=== PATIENT | male | born 1980 | race Caucasian/White ===

== ENCOUNTER 2017-02-23 09:15 | Emergency (ER) | payer MEDICAID ==
[~2017-02-23] VITALS: Ht 182.9 cm; Wt 104.5 kg
[2017-02-23 09:19] VITALS: Ht 182.9 cm; Wt 104.5 kg
[2017-02-23] MEDS ORDERED: IBUP400T22 PO (09:46)
--- NOTE | 2017-02-23 10:18 | ERA ---
ER Documentation Chief Complaint Date/Time DATE: 02/23/17 TIME: 10:15 Chief Complaint states hx of anxiety wants meds and ankle pain HPI 36-year-old male presenting when he refill of Ativan. Patient was in the ER 1 month ago for panic attacks and was given Ativan. Patient has not had panic attacks lately but once a prescription in case he has some in the future. Patient has no thoughts of suicide hurting oneself or others. Patient was also diagnosed with a left ankle sprain 1 month ago. Patient has mild pain on walking. There is no change in ambulation or numbness or tingling loss of sensation. ROS All systems reviewed and are negative except as per history of present illness. Medications Home Meds Active Scripts Ibuprofen* (Motrin*) 400 Mg Tab, 400 MG PO Q6, #30 TAB Prov:BRENDAN ANNA PA-C 02/23/17 PMhx/Soc Medical and Surgical Hx: pt denies Medical Hx, pt denies Surgical Hx Hx Alcohol Use: Yes Hx Substance Use: No Hx Tobacco Use: No Smoking Status: Never smoker Physical Exam Vitals Vital Signs Date Time Temp Pulse Resp B/P Pulse Ox O2 Delivery O2 Flow Rate FiO2 02/23/17 09:19 97.5 68 18 138/86 97 Physical Exam Const: Overweight 36-year-old male in no acute distress sitting on exam table Head: Atraumatic Eyes: Normal Conjunctiva ENT: Normal External Ears, Nose and Mouth. Neck: Full range of motion..~ No meningismus. Resp: Clear to auscultation bilaterally Cardio: Regular rate and rhythm, no murmurs Abd: Soft, non tender, non distended. Normal bowel sounds Skin: No petechiae or rashes Back: No midline or flank tenderness Ext: No cyanosis, or edema. No pain to palpation of ankles bilaterally. Neur: Awake and alert. Neurovascularly intact. Patellar reflexes 2+ bilaterally. Psych: Normal Mood and Affect Procedures/MDM Patient is requesting refill for Ativan. I have advised patient to follow-up with a primary care provider. He does not have a primary care provider or insurance so will be given him clinics on discharge. Patient is anxious right now and I have little suspicion for him hurting himself or others. He has verbally agreed to the assessment and plan. Patient has also complained of ankle sprain 1 month. Will discharge with ibuprofen for discomfort. Patient is able to ambulate and has no tenderness palpation a very low suspicion for break. X-ray was taken 1 month ago showed no acute fractures as the patient brought the documents with him. Patient will be discharged at this time with discharge instructions and return precautions. Departure Diagnosis: Primary Impression: Ankle sprain Qualified Code: S93.402D - Sprain of left ankle, unspecified ligament, subsequent encounter Additional Impression: Anxiety Condition: Stable Patient Instructions: Your Body's Response to Anxiety Referrals: [facility] YOU HAVE RECEIVED A MEDICAL SCREENING EXAM AND THE RESULTS INDICATE THAT YOU DO NOT HAVE A CONDITION THAT REQUIRES URGENT TREATMENT IN THE EMERGENCY DEPARTMENT. FURTHER EVALUATION AND TREATMENT OF YOUR CONDITION CAN WAIT UNTIL YOU ARE SEEN IN YOUR DOCTORS OFFICE WITHIN THE NEXT 1-2 DAYS. IT IS YOUR RESPONSIBILITY TO MAKE AN APPOINTMENT FOR FOLOW-UP CARE. IF YOU HAVE A PRIMARY DOCTOR --you should call your primary doctor and schedule an appointment IF YOU DO NOT HAVE A PRIMARY DOCTOR YOU CAN CALL OUR PHYSICIAN REFERRAL HOTLINE AT IF YOU CAN NOT AFFORD TO SEE A PHYSICIAN YOU CAN CHOSE FROM THE FOLLOWING [facility] [address] [facility] [address] [facility] [facility] [address] [facility] [facility] [address] [facility]. [facility] [address] [facility]. [facility]. [address] [place] Additional Instructions: Follow up with your PCP within the next 1-3 days for a more thorough evaluation and a possible referral to a specialist. Return the the emergency department immediately if symptoms worsen or change. If you have any questions regarding medications, ask your pharmacist or us before you leave. If any adverse reactions occur while taking your medications, discontinue the treatment and return to the emergency department immediately. Take your medications as directed, and complete the entire course of treatment. BRENDAN ANNA PA-C February 23, 2017 10:18
== END 2017-02-23 10:31 | disposition home or self-care (01) ==
LOC: FTE 09:15
DX: S93.402D Sprain of unspecified ligament of left ankle, subsequent encounter (principal); X58.XXXD Exposure to other specified factors, subsequent encounter
CPT/HCPCS: 99283

== ENCOUNTER 2017-06-12 16:00 | Emergency (ER) | payer MEDICAID, OTHER ==
[~2017-06-12] VITALS: Ht 182.9 cm; Wt 103.5 kg
[~2017-06-12 16:00] MED LIST: IBUP400T22 PO
[2017-06-12 16:09] VITALS: Ht 182.9 cm; Wt 103.5 kg
[2017-06-12] MEDS ORDERED: ONDANSETRON (ODT) 4 MG TAB ODT STA (17:19)
--- NOTE | 2017-06-12 17:48 | RADRPT ---
PROCEDURE: XR Chest. CLINICAL INDICATION: chest pain, shortness of breath TECHNIQUE: Single frontal view of the chest was obtained COMPARISON: None FINDINGS: The heart and mediastinum are within normal limits. The lungs are clear. There is no pleural effusion or pneumothorax. RPTAT: AA IMPRESSION: No acute disease. .Eliazar Blakely MD, MD Date Time Electronically viewed and signed by .Eliazar Blakely MD, on 06/12/2017 17:48 .S/
[2017-06-12 18:14] LABS: BASOPHIL # 0.1 10^3/ul (0.0-0.1); BASOPHILS % 0.5 % (0.0-2.0); EOSINOPHILS # 0.5 10^3/ul (0.0-0.5); EOSINOPHILS % 4.6 % (0.0-7.0); HEMATOCRIT 42.9 % (42.0-52.0); HEMOGLOBIN 15.2 g/dl (14.0-18.0); LYMPHOCYTES # 2.2 10^3/ul (0.8-2.9); LYMPHOCYTES % 20.2 % (15.0-51.0); MEAN CORPUSCULAR HEMOGLOBIN 32.1 pg (29.0-33.0); MEAN CORPUSCULAR HGB CONC 35.4 g/dl (32.0-37.0); MEAN CORPUSCULAR VOLUME 90.7 fl (82.0-101.0); MEAN PLATELET VOLUME 10.3 fl (7.4-10.4); MONOCYTE # 1.1 10^3/ul (0.3-0.9); MONOCYTES % 9.7 % (0.0-11.0); NEUTROPHILS % 64.7 % (39.0-77.0); PLATELET COUNT 259 10^3/UL (140-415); RED BLOOD COUNT 4.73 10^6/ul (4.70-6.10); RED CELL DISTRIBUTION WIDTH 12.3 % (11.5-14.5)
[2017-06-12 19:00] LABS: ALBUMIN 4.5 g/dl (3.3-4.9); ALBUMIN/GLOBULIN RATIO 1.32; BILIRUBIN,INDIRECT 0.5 mg/dl (0-1.1); BILIRUBIN,TOTAL 0.5 mg/dl (0.2-1.3); CALCIUM 9.4 mg/dl (8.4-10.2); CREATININE 1.13 mg/dl (0.61-1.24); POTASSIUM 4.7 mmol/L (3.5-5.1); TOTAL PROTEIN 7.9 g/dl (6.1-8.1)
[2017-06-12 19:43] LABS: CREATINE KINASE 65 IU/L (23-200)
--- NOTE | 2017-06-12 19:49 | ERD ---
ER Documentation Chief Complaint Date/Time DATE: 06/12/17 TIME: 19:43 Chief Complaint CP WITH SOB, BODY ACHES, AND FEVER X 1 WK HPI This 36-year-old male presents with multiple complaints over the last week. He feels like he has a fever but did not take his temperature. He also has some body aches and sensation of shortness of breath with intermittent chest pain. Patient has difficulty describing the chest pain although is worse after eating. May be burning or pressure type. Patient is worried as he has a history of panic attacks and is worried that it may be a panic attack. He takes low-dose Ativan as needed and did have some improvement while taking it today. Patient is also concerned as he has a history of cocaine abuse is worried about his heart. Denies any tobacco use, family history of early coronary artery disease, known high cholesterol denies diabetes. ROS All systems reviewed and are negative except as per history of present illness. Medications Home Meds Active Scripts Ibuprofen* (Motrin*) 400 Mg Tab, 400 MG PO Q6, #30 TAB Prov:BRENDAN ANNA PA-C 02/23/17 PMhx/Soc Medical and Surgical Hx: pt denies Medical Hx, pt denies Surgical Hx Hx Alcohol Use: Yes Hx Substance Use: No Hx Tobacco Use: No Smoking Status: Never smoker Physical Exam Vitals Vital Signs Date Time Temp Pulse Resp B/P Pulse Ox O2 Delivery O2 Flow Rate FiO2 06/12/17 16:09 98.9 76 18 127/78 99 Physical Exam Const: []Pleasant, talkative, not ill-appearing. Head: Atraumatic Eyes: Normal Conjunctiva ENT: Normal External Ears, Nose and Mouth. Neck: Full range of motion..~ No meningismus. Resp: Clear to auscultation bilaterally Cardio: Regular rate and rhythm, no murmurs Abd: Soft, non tender, non distended. Normal bowel sounds Skin: No petechiae or rashes Back: No midline or flank tenderness Ext: No cyanosis, or edema Neur: Awake and alert Psych: Normal Mood and Affect Result Diagram: 06/12/17 1800 06/12/17 1800 Results 24 hrs Laboratory Tests Test 06/12/17 18:00 White Blood Count 11.010^3/ul Red Blood Count 4.7310^6/ul Hemoglobin 15.2g/dl Hematocrit 42.9% Mean Corpuscular Volume 90.7fl Mean Corpuscular Hemoglobin 32.1pg Mean Corpuscular Hemoglobin Concent 35.4g/dl Red Cell Distribution Width 12.3% Platelet Count 21854^3/UL Mean Platelet Volume 10.3fl Neutrophils % 64.7% Lymphocytes % 20.2% Monocytes % 9.7% Eosinophils % 4.6% Basophils % 0.5% Nucleated Red Blood Cells % 0.0/100WBC Neutrophils # (Manual) 7.110^3/ul Lymphocytes # 2.210^3/ul Monocytes # 1.110^3/ul Eosinophils # 0.510^3/ul Basophils # 0.110^3/ul Nucleated Red Blood Cells # 0.010^3/ul Sodium Level 143mmol/L Potassium Level 4.7mmol/L Chloride Level 105mmol/L Carbon Dioxide Level 27mmol/L Anion Gap 16 Blood Urea Nitrogen 13mg/dl Creatinine 1.13mg/dl Glucose Level 84mg/dl Bedside Glucose 86mg/dL Calcium Level 9.4mg/dl Total Bilirubin 0.5mg/dl Direct Bilirubin 0.00mg/dl Indirect Bilirubin 0.5mg/dl Aspartate Amino Transf (AST/SGOT) 68IU/L Alanine Aminotransferase (ALT/SGPT) 66IU/L Alkaline Phosphatase 48IU/L Total Protein 7.9g/dl Albumin 4.5g/dl Globulin 3.40g/dl Albumin/Globulin Ratio 1.32 Current Medications Medications (Trade) Dose Ordered Sig/Keyla Route PRN Reason Start Time Stop Time Status Last Admin Dose Admin Ondansetron HCl (Zofran Odt) 8 mg ONCE STAT ODT 06/12/17 17:19 06/12/17 17:21 DC 06/12/17 17:37 Procedures/MDM EKG: Rate/Rhythm: [Normal Sinus Rhythm] rate equals 58 QRS, ST, T-waves: [No changes consistent w/ acute ischemia] Impression: [No evidence of ischemia or arrhythmia] shows a right bundle branch block as well as left fascicular block. Impression-bifascicular block. Repeat EKG shows bifascicular block with a rate of 60. No changes from prior EKG. CBC shows slight leukocytosis, CMP is normal. Troponin and CK pending. Patient is alert, ambulatory had no initial pain at upon presentation but had a return of his pain after eating a sandwich while waiting in the waiting room.Patient presents with multiple complaints and intermittent burning or pressure type chest pain. Patient complaints are not typical of cardiac chest pain but for the treatment and disposition will pending further study. Patient shows no signs or symptoms to respect suggest pulmonary embolism, endocarditis, aortic disease, hypoxemic, respiratory distress. Patient stable not ill- appearing remainder of ED course. Troponin and CK pending. Will be reviewed by mid-level and supervising ED physician. Departure Diagnosis: Primary Impression: Chest pain Chest pain type: unspecified Qualified Code: R07.9 - Chest pain, unspecified type Additional Impression: Anxiety Condition: Stable JUNIOR AJCOB MD Jun 12, 2017 19:49
[2017-06-12 20:01] LABS: TROPONIN-I < 0.012 ng/ml (0.00-0.12)
[2017-06-12 20:02] LABS: CK-MB 0.36 ng/ml (0.0-2.4)
[2017-06-12 20:54] VITALS: BP 120/70; PULSE 81; RESP 20
== END 2017-06-12 20:55 | disposition home or self-care (01) ==
LOC: FTE 16:00
DX: R07.9 Chest pain, unspecified (principal); F41.9 Anxiety disorder, unspecified
CPT/HCPCS: 71010; 80053; 82550; 82553; 82962; 84484; 85025; 93005

== ENCOUNTER 2018-12-24 12:20 | Emergency (ER) | payer SELFPAY ==
[~2018-12-24] VITALS: Ht 167.6 cm; Wt 85.0 kg
[~2018-12-24 12:20] MED LIST changes: +D-ME118S24 PO; +IBUP-1561 PO; -IBUP400T22 PO; +SODI30SP2 NS
[2018-12-24 12:51] VITALS: BP 126/83; PULSE 105; RESP 20; Ht 167.6 cm; Wt 85.0 kg
== END 2018-12-24 14:10 | disposition left against medical advice (07) ==
LOC: FTE 12:20
DX: Z53.21 Procedure and treatment not carried out due to patient leaving prior to being seen by health care provider (principal)
CPT/HCPCS: 93005

== ENCOUNTER 2019-04-15 19:56 | Emergency (ER) | payer OTHER ==
[~2019-04-15] VITALS: Ht 180.3 cm; Wt 110.0 kg
[2019-04-15 20:14] VITALS: BP 137/85; PULSE 73; RESP 18; Ht 180.3 cm; Wt 110.0 kg
--- NOTE | 2019-04-15 20:59 | ERD ---
ER Documentation Chief Complaint Chief Complaint headache/apurva eye pain x 4 days. also c/o cp HPI Patient is 38 years old male with past medical history of mental disorder presenting to the clinic for headache, sinus pressure, bilateral ear pain, sore throat, mild cough X few days. Patient denies taking any xauh-vie-xoysicf medication admits to chest pain denies difficulty breathing. Patient denies fever, chills, night sweats, sputum production, coryza, nasal discharge. ROS All systems reviewed and are negative except as per history of present illness. Medications Home Meds Active Scripts Mometasone Furoate* (Nasonex*) 50 Mcg/Fonda - 17 Gm Fonda.pump, 2 SPRAY NASAL BID, #1 BOTTLE TO EACH NOSTRIL Prov:LUCILA LANGE PA-C 04/15/19 Methylprednisolone* (Medrol* DOSE PACK) 4 Mg/Dose-Pack Tab.ds.pk, 4 MG PO . DIRECTED for 5 Days, PACKET Prov:LUCILA LANGE PA-C 04/15/19 Ibuprofen* (Motrin*) 800 Mg Tab, 800 MG PO Q6, #30 TAB Prov:LUCILA LANGE PA-C 04/15/19 Sodium Chloride (Saline Nasal Fonda) 30 Ml Fonda, 30 ML NS BID PRN for congestion, #1 BOTTLE Prov:BRENDAN KAUR DO 09/22/18 D-Methorphan Hb/P-Epd HCl/Bpm (Vlsgsbjebt-Mftlxxxgpir-Zz Syr) 118 Ml Syrup, 5 ML PO Q4H PRN for congestion for 7 Days, #1 BOTTLE Prov:BRENDAN KAUR DO 09/22/18 Ibuprofen* (Motrin*) 400 Mg Tab, 400 MG PO Q6, #30 TAB Prov:BRENDAN ANNA PA-C 02/23/17 Allergies Allergies: Coded Allergies: No Known Allergy (Unverified , 09/22/18) PMhx/Soc History of Surgery: Yes (Gallbladder) Anesthesia Reaction: No Hx Neurological Disorder: No Hx Respiratory Disorders: No Hx Cardiac Disorders: No Hx Psychiatric Problems: Yes (Anxiety, DEPRESSIO) Hx Miscellaneous Medical Probl: No Hx Alcohol Use: No Hx Substance Use: No Hx Tobacco Use: No Smoking Status: Never smoker FmHx Family History: No diabetes, No coronary disease, No other Physical Exam Vitals Vital Signs Date Temp Pulse Resp B/P (MAP) Pulse Ox O2 O2 Flow FiO2 Time Delivery Rate 04/15/19 98.3 73 18 137/85 99 20:14 (102) Physical Exam Const: No acute distress Head: Atraumatic. Frontal, ethmoidal, maxillary sinus tenderness. Eyes: Normal Conjunctiva ENT: Normal External Ears, and Mouth. Normal tympanic membrane bilaterally. Nasal mucosa edematous. Neck: Full range of motion. No meningismus. Resp: Clear to auscultation bilaterally Cardio: Regular rate and rhythm, no murmurs Skin: No petechiae or rashes Neur: Awake and alert Psych: Normal Mood and Affect Results 24 hrs Current Medications Medications Dose Sig/Keyla Start Time Status Last (Trade) Ordered Route PRN Stop Time Admin Dose Reason Admin 125 mg ONCE ONCE 04/15/19 DC Methylprednis IM 21:00 04/15/19 olone Sodium 21:01 Succinate (Solu-Medrol) Ibuprofen 800 mg ONCE ONCE 04/15/19 DC (Motrin) PO 21:00 04/15/19 21:01 Procedures/MDM Patient was seen and evaluated for headaches, sinus pain/pressure, cough. Patient is clinical symptoms most likely represent viral URI with cough and sinusitis without bacterial infection. Patient was given Solu-Medrol 125 IM and Profen 800 mg resolution of symptoms. Low suspicion of pneumonia and therefore no x-ray required for today's visit. EKG: Rate/Rhythm: Normal Sinus Rhythm with left anterior fascicular block QRS, ST, T-waves: No changes consistent w/ acute ischemia Impression: No evidence of ischemia or arrhythmia Patient was seen in 2017 for chest pain showed left anterior fascicular block. Patient is stable and ready for discharge. Follow up with PCP. Patient will be discharged with Medrol Dosepak, ibuprofen, and Nasonex. OTC Robitussin as needed. Departure Diagnosis: Primary Impression: Viral URI with cough Additional Impression: Sinusitis Sinusitis location: unspecified location Chronicity: acute Recurrence: non-recurrent Qualified Codes: J01.90 - Acute sinusitis, unspecified Condition: Stable Patient Instructions: Preventing Common Respiratory Infections Referrals: [facility] Additional Instructions: Patient advised to return to the ED immediately for new or worsening symptoms. Patient advised to follow up with primary care provider in the next 24-48 hours. Patient verbalized understanding and agrees with treatment plan and course of action. If patient has no primary care they may follow up with [facility] + [facility] [address] [place] [address] or [facility] [address] [place] [address] or [facility] [address] [place] [address] LUCILA LANGE PA-C Apr 15, 2019 20:59
[2019-04-15] MEDS ORDERED: METHYLPREDNISOLONE 125 MG INJ IM ONE (21:00)
[2019-04-15] MEDS ORDERED: MED4DP PO (21:00)
[2019-04-15] MEDS ORDERED: IBUPROFEN 800 MG TAB PO ONE (21:00)
[2019-04-15] MEDS ORDERED: IBUP800T48 PO (21:00)
[2019-04-15] MEDS ORDERED: MOME17SP14 NASAL (21:00)
== END 2019-04-15 21:25 | disposition home or self-care (01) ==
LOC: FTE 19:56
DX: J06.9 Acute upper respiratory infection, unspecified (principal); J01.90 Acute sinusitis, unspecified; R07.9 Chest pain, unspecified
CPT/HCPCS: 93005; 96372; J2930; Z7502; Z7610